=== PATIENT | male | born 1980 | race Caucasian/White ===

== ENCOUNTER 2016-08-06 19:01 | Emergency (ER) | payer OTHER ==
[~2016-08-06] VITALS: Ht 180.3 cm; Wt 73.6 kg
[~2016-08-06 19:01] MED LIST: AMOX500C3 PO; IBUP-103 PO; NAPR-1168 PO
[2016-08-06 19:03] VITALS: TEMP 36.6; Ht 180.3 cm; Wt 73.6 kg
[2016-08-06] MEDS ORDERED: ONDANSETRON 4MG OD TAB PO STA (19:41)
[2016-08-06] MEDS ORDERED: CYCLOBENZAPRINE HCL 10 MG TAB PO STA (19:41)
[2016-08-06] MEDS ORDERED: HYDROmorphone INJ 1 MG/ML SYR IM STA (19:41)
[2016-08-06] MEDS ORDERED: KETOROLAC TROMETHAMINE 60 MG/2 ML VIAL IM STA (19:41)
[2016-08-06] MEDS ORDERED: OXYCODONE IR HOME PACK PO ONE (19:45)
[2016-08-06] MEDS ORDERED: OXYC1TAB3 PO (20:00)
[2016-08-06] MEDS ORDERED: PRED20TA PO (20:00)
[2016-08-06] MEDS ORDERED: CYCL10TA6 PO (20:00)
--- NOTE | 2016-08-06 20:01 | EMERGENCY ROOM VISIT NOTE ---
ED Visit Note First contact with patient: 19:07 CHIEF COMPLAINT: Low back pain radiating into left buttock 3 weeks HISTORY OF PRESENT ILLNESS: Patient is a 36-year-old white male who presents emergency Department accompanied by his for evaluation of low-back pain that has been ongoing for about 3 weeks. He reports a history of back "going out" a few times in the past, last was about 3 years ago. Patient states that he developed pain in his left low back that radiated to his left buttocks about 3 weeks ago. They have tried icy hot, worse with movement, ice, heat and he has been going to the chiropractor for 3 weeks, but the patient reports that he is getting worse not better. He has tried a few doses of ibuprofen intermittently, but none regularly, and no other medications for discomfort. He describes the pain as a deep, aching pain that he presently rates a 7-8/10. He denies any radiation of the pain into the hip or groin. No numbness, tingling or weakness into the lower extremity. No bowel or bladder incontinence or saddle anesthesias. He has never had any other evaluation for his back other than vehicle care specialist and prior emergency department visits. He denies any direct trauma to the back, falls or unusual activity that could have injured his back prior to the onset of his pain. REVIEW OF SYSTEMS: Review of systems as per HPI. All other systems reviewed were negative. 10 systems reviewed. PMH: Electronic medical records are reviewed and summarized as above/below. See Problem List. SOCIAL HISTORY: Patient lives at home with his family. Smoker. PHYSICAL EXAM: Vital Signs: Reviewed Nurse's notes. MENTAL STATUS: Patient is an uncomfortable 36-year-old white male who is awake and alert and in mild distress due to his back pain. He has difficulty moving around on the gurney and with position changes. CARDIOVASCULAR: Regular rate and rhythm, with normal S1 and S2, no murmur or gallop or rub is heard. No carotid bruits auscultated. No JVD. Peripheral pulses easily palpable. RESPIRATORY: Breath sounds equal and clear to auscultation without wheezes, rales, or rhonchi heard. Full and equal chest expansion without accessory muscle use or retractions. ABDOMEN: Bowel sounds are present. Abdomen is soft, nontender and nondistended. INTEGUMENTARY: No lesions or rash, normal skin turgor. LYMPH: No lymphadenopathy. SPINE: Examination of the patient's back does not demonstrate any ecchymosis, abrasions or outward signs of trauma. No erythema, increased warmth or induration. Patient's pelvis is rotated, he has marked left-sided paraspinous muscle spasm in the lumbar region. Patient has midline discomfort to palpation over the low lumbar spine. There is no pain over the SI joint or the sciatic notch. He has increased pain with range of motion including rotation and flexion. EXTREMITIES: Leg lengths are asymmetrical. Negative logroll bilaterally. Normal strength including dorsi-flexion and plantar flexion of the great toes and ankles and flexion and extension of the knees. Positive bilateral straight leg raise testing. Lower extremity DTRs are equal and symmetrical bilaterally. Distal pulses are easily palpable. Sensation light touch is intact over the lower extremities bilaterally. EMERGENCY DEPARTMENT COURSE: Patient was seen and assessed as above. Old radiographs from about 3 years ago were reviewed. He was medicated with Toradol and Dilaudid IM with Zofran ODT and Flexeril by mouth. He does not provide any history consistent with trauma and it was not felt that new plain radiographs would be of any benefit. The patient admittedly has not been using any medications at home. I discussed with him at minimum taking an anti- inflammatory medicine such as Aleve or ibuprofen regularly. He is agreeable to other interventions, and a course of prednisone was discussed with him and he was in agreement. He was also prescribed Flexeril to use as a muscle relaxer and oxycodone to use for pain. He was strongly encouraged to follow-up with his primary care provider as he would likely benefit from physical therapy evaluation at this time. It was felt that he should hold on the vehicle care specialist until he is further assessed. The patient was discharged home with his driving. He rated his pain a 3/10 at discharge. MEDICAL DECISION MAKING: I do not suspect acute compression syndrome, cauda equina, diskitis, epidural abscess, hematoma or neurovascular compromise. Problem List Medical Problems: (1) Back strain Status: Resolved (2) Back strain Status: Resolved (3) Benign hypertension Status: Chronic (4) Dental caries Status: Resolved (5) Periapical abscess Status: Resolved (6) TOBACCO USE DISORDER Status: Chronic Current/Historical Medications Scheduled Prednisone (Prednisone), 0 PO DAILY Scheduled PRN Cyclobenzaprine Hcl (Flexeril), 10 MG PO TID PRN for Muscle Spasms Oxycodone Immediate Rel Tab (Roxicodone Ir), 1-2 TAB PO Q4H PRN for Severe Pain Allergies Coded Allergies: No Known Allergies (Unverified , 04/26/15) Vital Signs Date Time Temp Pulse Resp B/P Pulse Ox O2 Delivery O2 Flow Rate FiO2 08/06/16 20:28 73 16 145/64 95 Room Air 08/06/16 19:03 36.6 91 20 142/84 99 Room Air Medications Administered Medications (Trade) Dose Ordered Sig/Michael Route Start Time Stop Time Status Last Admin Dose Admin Ketorolac Tromethamine (Toradol Inj) 60 mg NOW STAT IM 08/06/16 19:41 08/06/16 19:44 DC 08/06/16 20:01 60 MG Hydromorphone HCl (Dilaudid Inj) 1 mg NOW STAT IM 08/06/16 19:41 08/06/16 19:44 DC 08/06/16 20:01 1 MG Ondansetron HCl (Zofran Odt) 4 mg NOW STAT PO 08/06/16 19:41 08/06/16 19:44 DC 08/06/16 20:01 4 MG Cyclobenzaprine HCl (Flexeril Tab) 10 mg NOW STAT PO 08/06/16 19:41 08/06/16 19:44 DC 08/06/16 20:00 10 MG Oxycodone HCl (Roxicodone Immediate Rel 5MG Home Pack) 1 homepack UD ONCE PO 08/06/16 19:45 08/06/16 19:46 DC 08/06/16 19:45 1 HOMEPACK Departure Information Impression Primary Impression: Low back pain Prescriptions Prednisone (Prednisone) 20 Mg Tab 0 PO DAILY, #18 TAB 3 DAILY FOR 3 DAYS, THEN 2 DAILY FOR 3 DAYS, THEN 1 DAILY FOR 3 DAYS. Prov: Karla Andrade PA 08/06/16 Oxycodone Immediate Rel Tab (ROXICODONE IR) 5 Mg Tab 1-2 TAB PO Q4H Y for Severe Pain, #20 TAB For Initial Treatment Prov: Karla Andrade PA 08/06/16 Cyclobenzaprine Hcl (FLEXERIL) 10 Mg Tab 10 MG PO TID Y for Muscle Spasms, #21 TAB Prov: Karla Andrade PA 08/06/16 Referrals Matteo Barrios M.D. (PCP) Patient Instructions [facility] Additional Instructions DO NOT drive, drink alcohol, operate machinery, or perform dangerous activities today. You were given medications in the ER that can affect your ability to safely function or operate a vehicle. Prednisone : Once daily as prescribed until the prescription is finished. It is best to take this earlier in the day as some patients note occasional difficulty falling asleep when taken in the late evening. Oxycodone (OxyIR) 5mg: Take 1-2 pills every four hours for breakthrough pain. Avoid alcohol, operating machinery or dangerous equipment, working on ladders or roofs, DRIVING, or situations where being under the influence may be dangerous. It is recommended to use an [id number] stool softener such as Colace, 100mg twice daily while taking this medication to avoid constipation. Cyclobenzaprine (Flexeril) 10 mg: Take 1 pills 3 times daily as needed for muscle spasms.. Avoid alcohol, operating machinery or dangerous equipment, working on ladders or roofs, DRIVING, or situations where being under the influence may be dangerous. Ibuprofen(Motrin, Advil) may be used for fever or pain. Use 600mg every six hours as needed. Take with food. Avoid using more than 2400mg in a 24 hour period. Do not use 2400mg per day for more than three consecutive days without physician direction. Prolonged inappropriate use can lead to stomach upset or ulcers. This medication can be taken if you need to drive, work, or perform activities which may be dangerous when taking narcotic pain medication. (AND/OR) Acetaminophen(Tylenol) may be used for fever or pain. Use 1000mg every six hours as needed. Avoid using more than 3000mg in a 24 hour period. This medication can be taken if you need to drive, work, or perform activities which may be dangerous when taking narcotic pain medication. Do not use ibuprofen until you have completed the course of prednisone. Rest and avoid heavy lifting until your symptoms resolve and then gradually return to full activity. A good rule of thumb is if it hurts your back to perform a certain activity, then it should be avoided until you are healthy again. A heating pad, warm compresses, or a hot shower may help with tight muscles and can be done several times a day as needed. Continue current medications. Return to the ER immediately for any numbness, tingling, severe pain, loss of control of your bowels or bladder, inability to walk, or as needed. Follow up with your primary care physician within 3-5 days for a recheck of your current condition.
[2016-08-06 20:28] VITALS: BP 145/64; PULSE 73; O2SAT 95
== END 2016-08-06 20:30 | disposition home or self-care (01) ==
LOC: C.EDB 19:02 → C.EDD 20:30
DX: M54.5 Low back pain (principal); I10 Essential (primary) hypertension; F17.200 Nicotine dependence, unspecified, uncomplicated; Z86.19 Personal history of other infectious and parasitic diseases

== ENCOUNTER 2016-11-30 10:41 | Emergency (ER) | payer SELFPAY ==
[~2016-11-30] VITALS: Ht 177.8 cm; Wt 72.0 kg
[~2016-11-30 10:41] MED LIST changes: -AMOX500C3 PO; -IBUP-103 PO; -NAPR-1168 PO; +OXYC1TAB3 PO; +PRED20TA PO
[2016-11-30 10:46] VITALS: Ht 177.8 cm; Wt 72.0 kg
[2016-11-30] MEDS ORDERED: KETOROLAC TROMETHAMINE 60 MG/2 ML VIAL IM STA (10:59)
--- NOTE | 2016-11-30 11:57 | DIAGNOSTIC IMAGING REPORT ---
L-SPINE MIN 4 VIEWS ROUTINE HISTORY: Pain LBP eval for fx COMPARISON: 08/01/2013 FINDINGS: There is no fracture. No subluxation. Moderate scoliosis possibly positional IMPRESSION: No acute process. Lumbar scoliosis. The above report was generated using voice recognition software. It may contain grammatical, syntax or spelling errors. Electronically signed by: Osman Cook M.D. 11/30/2016 11:55 AM Dictated Date/Time: 11/30/2016 11:54 AM
[2016-11-30] MEDS ORDERED: PRED20TA PO (12:18)
[2016-11-30] MEDS ORDERED: OXYC1TAB3 PO (12:18)
[2016-11-30 12:31] VITALS: BP 135/87; PULSE 57; TEMP 36.5; O2SAT 100
--- NOTE | 2016-11-30 16:44 | EMERGENCY ROOM VISIT NOTE ---
History Report prepared by Kermit: Ellie Rosa Under the Supervision of: Dr. Christian Aleman M.D. First contact with patient: 10:52 Chief Complaint: HIP PAIN Stated Complaint: HIP/BACK PAIN History of Present Illness The patient is a 36 year old male who presents to the Emergency Room with complaints of persistent left sided back pain that began a week and a half ago. He currently rates his discomfort as a 10/10 in severity. The patient states that last week he began noticing the pain that radiates into his left hip. He states that he has had pain like this in the past, noting that it occasionally flares up. The patient states that he has had difficulty walking due to the pain. He reports that he did trip and fall the other day due to the pain. The patient describes the pain as a sharp, throbbing pain. He additionally reports left leg numbness. The patient's states that the patient has taken Ibuprofen, Tylenol, and Naproxen without relief of his symptoms. The patient states that he did do physical therapy several years ago for his pain, but denies any recent physical therapy. He denies any fever, abdominal pain, or loss of control of his bowel or bladder. Source of History: patient, spouse/significant other () Onset: a week and a half ago Position: back (left sided) Symptom Intensity: 10/10 Quality: sharp, other (throbbing) Timing: other (persistent) Associated Symptoms: + numbness (Intermittent left leg), No fevers, No abdominal pain Review of Systems See HPI for pertinent positives & negatives. A total of 10 systems reviewed and were otherwise negative. Past Medical & Surgical Medical Problems: (1) Back strain (2) Back strain (3) Benign hypertension (4) Dental caries (5) Periapical abscess (6) TOBACCO USE DISORDER Family History Cancer Diabetes mellitus Heart disease Hypertension Lung disease Social History Smoking Status: Current Every Day Smoker Alcohol Use: none Marital Status: single Housing Status: lives with family, lives with significant other Occupation Status: employed Current/Historical Medications Scheduled Prednisone (Prednisone), 0 PO DAILY Scheduled PRN Oxycodone Ir (Roxicodone Ir), 5 MG PO Q4H PRN for Pain Allergies Coded Allergies: No Known Allergies (Unverified , 11/30/16) Physical Exam Vital Signs Date Time Temp Pulse Resp B/P (MAP) Pulse Ox O2 Delivery O2 Flow Rate FiO2 11/30/16 12:31 36.5 57 18 135/87 100 11/30/16 10:46 36.5 73 18 128/90 98 Physical Exam Constitutional: Vital signs reviewed. Eyes: Pupils are equal round reactive to light. Conjunctiva are noninjected. ENT: Pharynx is clear without erythema or exudate. Mucous membranes are moist. Neck supple without meningeal signs. Respiratory: Clear to auscultation bilaterally. Breath sounds are equal bilaterally. Cardiovascular: Regular rate and rhythm. No rubs or gallops. GI: Soft, nondistended and nontender. Bowel sounds are present. Musculoskeletal: No midline tenderness to the thoracic or lumbosacral spine. No peripheral edema. No lower extremity tenderness. Integumentary: No cyanosis. Neurological: The patient is awake and alert. No focal deficits. Normal motor and sensation in the lower extremities. Psychiatric: Normal affect. Medical Decision & Procedures ER Provider Diagnostic Interpretation: X-ray results as stated below per interpretation by me and the radiologist: L-SPINE MIN 4 VIEWS ROUTINE HISTORY: Pain LBP eval for fx COMPARISON: 08/01/2013 FINDINGS: There is no fracture. No subluxation. Moderate scoliosis possibly positional IMPRESSION: No acute process. Lumbar scoliosis. The above report was generated using voice recognition software. It may contain grammatical, syntax or spelling errors. Electronically signed by: Osman Cook M.D. 11/30/2016 11:55 AM Dictated Date/Time: 11/30/2016 11:54 AM Medications Administered Medications (Trade) Dose Ordered Sig/Michael Route Start Time Stop Time Status Last Admin Dose Admin Ketorolac Tromethamine (Toradol Inj) 30 mg NOW STAT IM 11/30/16 10:59 11/30/16 11:01 DC 11/30/16 11:20 30 MG ED Course 1054: The patient was evaluated in room C5. A complete history and physical exam was performed. 1059: Ordered Toradol Inj 30 mg IM. 1213: I reevaluated the patient and he is feeling a little better. I discussed his test results with him and I discussed the treatment plan. He requested Prednisone, noting that it worked well for him last time. He verbalized complete understanding and agreement. He is ready to go home. Medical Decision This is a 36-year-old male who presents with low back pain. Differential diagnosis includes strain, lumbar disc disease, radiculopathy, spinal stenosis, compression fracture. I did perform a limited focused review of portions of the patient's old chart on the electronic medical record. The patient was seen here August 06 for low back pain radiating into the left buttock. He was treated with oxycodone, Flexeril, and steroids. Blood Pressure Screening: Patient was found to have an elevated blood pressure and was referred to their primary doctor for recheck and further treatment. Medication Reconciliation: I attest that I have personally reviewed the patient' s current medication list. I did evaluate the patient as noted above. The patient is presenting with low back pain radiating into his left leg. He is neurologically intact and shows no signs of cauda equina syndrome or spinal cord injury. He has had similar back pain in the past and states that the last time he was here he did well with steroids and oxycodone. I did order and personally review the patient's x- rays as he has scoliosis but no acute findings as described above. I did treat the patient with Toradol IM. I did discuss the test results with the patient. He was advised to talk to his doctor about physical therapy and further management. He was discharged with a prescription for prednisone and OxyIR. He was given precautions regarding these medications. [place] Drug Monitoring Program Search Results: patient reviewed within database, no issues identified Impression Primary Impression: Acute low back pain Additional Impressions: Injury of sciatic nerve at hip and thigh level, left leg, initial encounter Scoliosis Scribe Attestation The scribe's documentation has been prepared under my direct and personally reviewed by me in its entirety. I confirm that the note above accurately reflects all work, treatment, procedures, and medical decision making performed by me. Departure Information Dispostion Home / Self-Care Prescriptions Prednisone (Prednisone) 20 Mg Tab 0 PO DAILY, #14 TAB 3 TABS DAILY FOR 2 DAYS, THEN 2 TABS DAILY FOR 2 DAYS, THEN 1 TAB DAILY FOR 2 DAYS, THEN 1/2 TAB DAILY FOR 2 DAYS. Prov: Christian Aleman M.D. 11/30/16 Oxycodone Ir (Roxicodone Ir) 5 Mg Tab 5 MG PO Q4H Y for Pain, #20 TAB Prov: Christian Aleman M.D. 11/30/16 Referrals Matteo Barrios M.D. (PCP) Forms HOME CARE DOCUMENTATION FORM, IMPORTANT VISIT INFORMATION, WORK / SCHOOL INSTRUCTIONS Patient Instructions Back Pain - [facility], My [facility] Additional Instructions You have been examined and treated today on an emergency basis only. This is not a substitute for, or an effort to provide, complete comprehensive medical care. It is impossible to recognize and treat all injuries or illnesses in a single emergency department visit. It is therefore important that you follow up closely with your physician. Call as soon as possible for an appointment. Return for worsening symptoms or if you develop fever, vomiting, abdominal pain , loss of control of your bowel or bladder, numbness or weakness to your legs, numbness to your private area, difficulty urinating, or any other concerning symptoms. Problem Qualifiers Primary Impression: Acute low back pain Back pain laterality: left Sciatica presence: with sciatica Sciatica laterality: sciatica of left side Qualified Codes: M54.42 - Lumbago with sciatica, left side Additional Impressions: Scoliosis Scoliosis type: unspecified scoliosis Spinal region: lumbar Qualified Codes : M41.9 - Scoliosis, unspecified
== END 2016-11-30 12:33 | disposition home or self-care (01) ==
LOC: C.EDB 10:41 → C.EDC 12:33
DX: M54.42 Lumbago with sciatica, left side (principal); S74.02XA Injury of sciatic nerve at hip and thigh level, left leg, initial encounter; W18.39XA Other fall on same level, initial encounter; M41.9 Scoliosis, unspecified; I10 Essential (primary) hypertension; F17.200 Nicotine dependence, unspecified, uncomplicated; Z83.3 Family history of diabetes mellitus; Z82.49 Family history of ischemic heart disease and other diseases of the circulatory system

== ENCOUNTER 2017-05-30 00:33 | Emergency (ER) | payer OTHER ==
[~2017-05-30] VITALS: Ht 180.3 cm; Wt 74.3 kg
[~2017-05-30 00:33] MED LIST changes: +PRED10TA PO
[2017-05-30 00:36] VITALS: TEMP 36.4; Ht 180.3 cm; Wt 74.3 kg
[2017-05-30] MEDS ORDERED: KETOROLAC TROMETHAMINE 60 MG/2 ML VIAL IM STA (01:37)
[2017-05-30] MEDS ORDERED: LIDODERM (LIDOCAINE) PATCH 5% TD STA (01:37)
[2017-05-30] MEDS ORDERED: OXYCODONE/ACETAMINOPHEN 5-325 TAB PO STA (01:37)
[2017-05-30] MEDS ORDERED: FAMOTIDINE 20 MG TAB PO ONE (01:45)
[2017-05-30] MEDS ORDERED: FLX10 PO (01:48)
[2017-05-30] MEDS ORDERED: HYDR-4313 PO (01:49)
[2017-05-30] MEDS ORDERED: GABAPENTIN 100 MG CAP PO STA (04:17)
--- NOTE | 2017-05-30 04:39 | EMERGENCY ROOM VISIT NOTE ---
History Report prepared by Kermit: Karolina Lazar Under the Supervision of: Dr. Allyssa Markham D.O. First contact with patient: 01:21 Chief Complaint: BACK PAIN Stated Complaint: BACK AND LEG PAIN History of Present Illness The patient is a 37 year old male who presents to the Emergency Room with complaints of worsening back pain for the past month. The patient injured his back last November. He has had worsening pain since then. The pain has been significantly worse over the past month. The patient has been taking Aleve, Flexeril, prednisone, and Vicodin to no significant relief. He took 2 5/325 Vicodin around 6 hours ago. The pain is in his left lower back. He reports difficulty walking and numbness in his left leg. He has been unable to sleep due to the pain. He denies any previous back injury or surgery. He denies any leg pain, numbness or tingling in the groin, incontinence, or fever. Source of History: patient, spouse/significant other Onset: 1 month ago Position: back (lower) Quality: other (pain) Timing: worsening Associated Symptoms: + numbness (left leg), No fevers Note: Pt denies groin numbness or tingling, leg pain, incontinence. Review of Systems See HPI for pertinent positives & negatives. A total of 10 systems reviewed and were otherwise negative. Past Medical & Surgical Medical Problems: (1) Back strain (2) Back strain (3) Benign hypertension (4) Dental caries (5) Periapical abscess (6) TOBACCO USE DISORDER Family History Cancer Diabetes mellitus Heart disease Hypertension Lung disease Social History Smoking Status: Current Every Day Smoker Alcohol Use: none Marital Status: single Housing Status: lives with family, lives with significant other Occupation Status: employed Current/Historical Medications Scheduled Gabapentin (Neurontin), 100 MG PO Q8 Prednisone Tab (Prednisone), 30 MG PO Q12 Scheduled PRN Acetaminophen/Hydrocodone (Hydrocodone/Acetaminophen 5-325 mg), 1 TAB PO q4-6 hrs PRN for Pain Cyclobenzaprine HCl (Cyclobenzaprine HCl), 10 MG PO BID PRN for Muscle Spasms Oxycodone/Acetaminophen 5MG/325MG (Percocet 5MG/325MG), 1-2 TABS PO Q4H PRN for Pain Allergies Coded Allergies: No Known Allergies (Unverified , 05/30/17) Physical Exam Vital Signs Date Time Temp Pulse Resp B/P (MAP) Pulse Ox O2 Delivery O2 Flow Rate FiO2 05/30/17 04:48 91 20 134/68 99 05/30/17 02:27 105 18 126/58 98 Room Air 05/30/17 00:36 36.4 108 18 120/77 97 Room Air Physical Exam GENERAL: alert, tearful, well nourished, no distress, non-toxic EYE EXAM: normal conjunctiva, PERRL and EOM's grossly intact OROPHARYNX: no exudate, no erythema, lips, buccal mucosa, and tongue normal and mucous membranes are moist NECK: supple, no nuchal rigidity, no adenopathy, non-tender LUNGS: Clear to auscultation. Normal chest wall mechanics HEART: no murmurs, S1 normal and S2 normal ABDOMEN: abdomen soft, non-tender, normo-active bowel sounds, no masses, no rebound or guarding. BACK: Back is symmetrical on inspection and there is no deformity, tender to palpation of lumbar area and left paraspinal area. No pain over the PSIS. No pain with palpation of the pelvis or hips. SKIN: no rashes and no bruising UPPER EXTREMITIES: upper extremities are grossly normal. LOWER EXTREMITIES: No pitting edema. Patellar tendon reflexes 2/4 bilaterally. Sensation seems intact. NEURO EXAM: Normal sensorium, cranial nerves II-XII grossly intact, normal speech, no gross weakness of arms, no gross weakness of legs. Medical Decision & Procedures ER Provider Diagnostic Interpretation: Radiology results have been interpreted by the [facility] radiologist and reviewed by me. MRI L spine: At L4-5, large left paracentral disc protrusion (anterior to posterior dimension of 11 mm) extending into the lateral recess. This impinges on/results in mass effect on the transiting nerve roots. No significant neural foraminal narrowing. Medications Administered Medications (Trade) Dose Ordered Sig/Michael Route Start Time Stop Time Status Last Admin Dose Admin Ketorolac Tromethamine (Toradol Inj) 60 mg NOW STAT IM 05/30/17 01:37 05/30/17 01:40 DC 05/30/17 01:45 60 MG Famotidine (Pepcid Tab) 20 mg NOW ONCE PO 05/30/17 01:45 05/30/17 01:46 DC 05/30/17 01:45 20 MG Lidocaine (Lidoderm Patch 5%) 1 patch NOW STAT TD 05/30/17 01:37 05/30/17 01:40 DC 05/30/17 01:45 1 PATCH Oxycodone/ Acetaminophen (Percocet 5-325mg Tab) 2 tab NOW STAT PO 05/30/17 01:37 05/30/17 01:40 DC 05/30/17 01:44 2 TAB Gabapentin (Neurontin Cap) 100 mg NOW STAT PO 05/30/17 04:17 05/30/17 04:18 DC 05/30/17 04:31 100 MG ED Course 0121: The patient was evaluated in room B9. A complete history and physical exam was performed. 0137: Percocet 5-325 mg Tab 2 tab PO, Lidocaine 1 patch TD, Toradol Inj 60 mg IM. 0145: Famotidine 20 mg PO. 0417: Gabapentin 100 mg PO. 0419: Upon reevaluation, the patient is feeling better. I discussed the findings and the treatment plan with the patient. He verbalizes agreement and understanding. He was discharged home. Medical Decision Differential diagnosis: Etiologies such as musculoskeletal, disc herniation, fracture, aortic disease, metastatic disease, cord compression, discitis, infection, renal colic, gastrointestinal, acute exacerbation of chronic back pain, sciatica, cauda equina, as well as others were entertained. Patient improved here despite complaints. Patient made aware of MRI results, already has an appointment with a charge master specialist this week. No symptoms to suggest acute cauda equina, patient made aware of nerve impingement likely contributing to symptoms of radiculopathy. Discussed with patient symptoms to watch and return for, use of medications, possible side effects medications, adequate hydration, rest and activity, he verbalized understanding was agreeable with plan. [place] Drug Monitoring Program Search Results: patient reviewed within database, no issues identified Medication Reconcilliation Current Medication List: was personally reviewed by me Blood Pressure Screening Patient's blood pressure: Elevated blood pressure Blood pressure disposition: Elevated BP felt to be situational Impression Primary Impression: Back pain Additional Impressions: Lumbar radiculopathy Paresthesia Scribe Attestation The scribe's documentation has been prepared under my direction and personally reviewed by me in its entirety. I confirm that the note above accurately reflects all work, treatment, procedures, and medical decision making performed by me. Departure Information Dispostion Home / Self-Care Prescriptions Gabapentin (Neurontin) 100 Mg Cap 100 MG PO Q8 for Pain, #30 CAP Prov: Rashi Allyssa S., DO 05/30/17 Oxycodone/Acetaminophen 5MG/325MG (PERCOCET 5MG/325MG) Tab 1-2 TABS PO Q4H Y for Pain, #14 TAB Prov: Allyssa Markham, DO 05/30/17 Referrals Matteo Barrios M.D. (PCP) Patient Instructions My [facility] Additional Instructions Please keep your appointment with Dr. Jaffe for Thursday. Please use the medications as prescribed. Do not take the muscle relaxer or stronger pain medication and drive. Please drink plenty of water. The stronger pain medications can cause constipation, please consider using a stool softener while taking the pain medication. If you develop worsening pain, worsening numbness or tingling, lose control of bowel or bladder function, develop fevers or chills, vomiting, or you have any other new concerns, please return the emergency room. Problem Qualifiers Primary Impression: Back pain Back pain location: low back pain Chronicity: chronic Back pain laterality : midline Sciatica presence: with sciatica Sciatica laterality: sciatica of left side Qualified Codes: M54.42 - Lumbago with sciatica, left side; G89.29 - Other chronic pain
[2017-05-30] MEDS ORDERED: OXYC-57 PO (04:40)
[2017-05-30] MEDS ORDERED: NRN/100 PO (04:40)
[2017-05-30 04:48] VITALS: BP 134/68; PULSE 91; O2SAT 99
--- NOTE | 2017-05-30 06:13 | DIAGNOSTIC IMAGING REPORT ---
LUMBAR SPINE W/O CONTRAST HISTORY: Pain. Paresthesias. LBP, LLE weakness/paresthesias TECHNIQUE: Multiplanar multisequence MRI of the lumbar spine was performed without the use of contrast. COMPARISON: None. FINDINGS: For the purpose of the report the L5-S1 disc space will be located on axial image 27 of 30. Compromised exam due to patient motion. Study nevertheless is diagnostic. L1-L2: No significant central canal or neural foraminal narrowing. L2-L3: No significant central canal or neural foraminal narrowing. L3-L4: No significant central canal or neural foraminal narrowing. L4-L5: Large left central disc herniation. Moderate narrowing left neural foramina with significant spinal stenosis primarily in the left lateral position. Disc material occupies the left lateral recess. L5-S1: No significant central canal or neural foraminal narrowing. IMPRESSION: 1. Large left central disc herniation L4-L5. 2. Soft tissue/disc material occupies the left lateral recess as well as narrows the left neural foramina . 3. Significant impact upon the anterior left central thecal sac. The above report was generated using voice recognition software. It may contain grammatical, syntax or spelling errors. Electronically signed by: Osman Cook M.D. 05/30/2017 6:11 AM Dictated Date/Time: 05/30/2017 6:08 AM
[2017-06-01] MEDS ORDERED: IBUP-1428 PO (12:20)
[2017-06-01] MEDS ORDERED: OXYC-57 PO (12:20)
[2017-06-01] MEDS ORDERED: GABA-113 PO (12:20)
[2017-06-01] MEDS ORDERED: HYDR-5688 PO (12:20)
== END 2017-05-30 04:48 | disposition home or self-care (01) ==
LOC: C.EDB 00:34
DX: M54.42 Lumbago with sciatica, left side (principal); M54.16 Radiculopathy, lumbar region; G89.29 Other chronic pain; R20.2 Paresthesia of skin; I10 Essential (primary) hypertension; F17.210 Nicotine dependence, cigarettes, uncomplicated; Z80.9 Family history of malignant neoplasm, unspecified; Z83.3 Family history of diabetes mellitus; Z82.49 Family history of ischemic heart disease and other diseases of the circulatory system; Z83.6 Family history of other diseases of the respiratory system

== ENCOUNTER → 2017-06-01 | Outpatient (CLI) | payer OTHER ==
[~2017-06-01] MED LIST changes: +FLX10 PO; +GABA-113 PO; +HYDR-4313 PO; +HYDR-5688 PO; +IBUP-1428 PO; +NRN/100 PO; +OXYC-57 PO
--- NOTE | 2017-06-01 12:36 | DIAGNOSTIC IMAGING REPORT ---
TWO VIEW CHEST CLINICAL HISTORY: Preoperative examination. FINDINGS: PA and lateral chest radiographs are obtained. No prior studies are available for comparison at the time of dictation. The PA view is significantly degraded by patient rotation. The cardiomediastinal silhouette is unremarkable. Airspace opacities are seen at the left lung base. The lungs are otherwise clear. No pleural effusion or pneumothorax is seen. The bony thorax appears intact. IMPRESSION: 1. Airspace opacities are present at the left lung base. This may represent atelectasis. Correlate clinically for evidence of developing pneumonia. Consider a repeat PA view with improved positioning for reassessment. 2. The right lung is clear. No pleural effusion is identified. Electronically signed by: Jaya Lau M.D. 06/01/2017 12:35 PM Dictated Date/Time: 06/01/2017 12:33 PM
[2017-06-01 13:09] LABS: BASO % 0.1 %; BASO ABS # 0.01 K/uL (0-0.2); EOS % 0.2 %; EOS ABS # 0.02 K/uL (0-0.5); HEMATOCRIT 44.8 % (42-52); IG# 0.03 K/uL (0.00-0.02); LYMPH % 14.1 %; MEAN CELL VOLUME 91.4 fL (80-100); MEAN CORPUSCULAR HEMOGLOBIN 30.6 pg (25-34); MEAN CORPUSCULAR HGB CONC 33.5 g/dl (32-36); MEAN PLATELET VOLUME 10.5 fL (7.4-10.4); MONO % 3.4 %; MONO ABS # 0.36 K/uL (0.11-0.59); NEUT % 81.9 %; NEUT ABS # 8.74 K/uL (1.4-6.5); PLATELET COUNT 196 K/uL (130-400); RED CELL DISTRIBUTION WIDTH CV 13.1 % (11.5-14.5); RED CELL DISTRIBUTION WIDTH SD 43.8 fL (36.4-46.3); WHITE BLOOD COUNT 10.66 K/uL (4.8-10.8)
[2017-06-01 13:29] LABS: BLOOD UREA NITROGEN 12 mg/dl (7-18); CALCIUM 9.4 mg/dl (8.5-10.1); CARBON DIOXIDE 30 mmol/L (21-32); CREATININE 1.02 mg/dl (0.60-1.40); GLUCOSE 145 mg/dl (70-99); POTASSIUM 3.7 mmol/L (3.5-5.1); SODIUM 137 mmol/L (136-145)
== END | disposition home or self-care (01) ==
LOC: C.LAB 11:57
PROVIDERS: ATTEND Orthopaedic Surgery Orthopaedic Surgery of the Spine
DX: M51.26 Other intervertebral disc displacement, lumbar region (principal)

== ENCOUNTER 2017-06-03 08:51 | Day surgery (SDC) | payer OTHER ==
[2017-06-01 12:14] VITALS: Ht 180.3 cm; Wt 72.7 kg
[~2017-06-03] VITALS: Ht 180.3 cm; Wt 72.7 kg
[~2017-06-03 08:51] MED LIST changes: +CEFAZOLIN 1000MG IV PUSH 5 ML IV SCH; -HYDR-4313 PO; +LACTATED RINGER'S 1000ML 1,000 ML IV SCH; -NRN/100 PO; -OXYC1TAB3 PO; -PRED10TA PO; -PRED20TA PO
[2017-06-03 09:40] VITALS: BP 140/101; PULSE 80; TEMP 36.5; O2SAT 98
[2017-06-03] MEDS ORDERED: ATROPINE SULFATE 0.1 MG/ML 5ML SYR IV PRN (10:00)
[2017-06-03] MEDS ORDERED: ONDANSETRON INJ 2 MG/ML 2 ML VIAL IV PRN (10:00)
[2017-06-03] MEDS ORDERED: PROMETHAZINE HCL INJ 12.5 MG in SODIUM CHLORIDE 0.9% 50ML 50 ML IV PRN (10:00)
[2017-06-03] MEDS ORDERED: EpHEDrine SULFATE INJ 50 MG/ML AMP IV PRN (10:00)
[2017-06-03] MEDS ORDERED: HYDROmorphone INJ 1 MG/ML SYR IV PRN ×2 (10:00→12:45)
--- NOTE | 2017-06-03 10:16 | DIAGNOSTIC IMAGING REPORT ---
CHEST 2 VIEWS ROUTINE CLINICAL HISTORY: Preoperative chest COMPARISON STUDY: 06/01/2017 FINDINGS: The cardiac and mediastinal contours are normal. There is no evidence of focal pulmonary consolidation. There is no evidence of failure. No pleural effusions are visualized.[ IMPRESSION: No active disease in the chest. Electronically signed by: Jordan Ho M.D. 06/03/2017 10:15 AM Dictated Date/Time: 06/03/2017 10:13 AM
[2017-06-03] MEDS ORDERED: FENTANYL CITRATE INJ 50 MCG/1 ML 2 ML VIAL ONE ×2 (10:46→11:28)
[2017-06-03] MEDS ORDERED: MIDAZOLAM HCL 1 MG/ML 2ML VIAL ONE (10:46)
--- NOTE | 2017-06-03 11:03 | History & Physical Bridge Note ---
H&P Re-Evaluation Bridge Note: I have examined the patient, reviewed the History & Physical and in the interval since the performance of the History & Physical I have noted the following changes of clinical significance: No changes noted
--- NOTE | 2017-06-03 11:04 | History and Physical ---
History & Physical Date Jun 03, 2017. Chief Complaint Back and leg pain History of Present Illness The patient is a 37 year old male with complaints of back and leg pain Past Medical/Surgical History Medical Problems: (1) Back strain (2) Back strain (3) Benign hypertension (4) Dental caries (5) Periapical abscess (6) TOBACCO USE DISORDER Additional History Hepatic Disease: No Endocrine Disorder: No Kidney Disease: No Hypertension: No Heart Disease: No Bleeding Tendencies: No Infectious Diseases: No Allergies Coded Allergies: No Known Allergies (Unverified , 06/03/17) Home Medications Scheduled Gabapentin (Neurontin), 300 MG PO Q8H Scheduled PRN Cyclobenzaprine HCl (Cyclobenzaprine HCl), 10 MG PO BID PRN for Muscle Spasms Ibuprofen (Motrin), 800 MG PO Q4-6H PRN for Pain Oxycodone/Acetaminophen 5MG/325MG (Percocet 5MG/325MG), 1-2 TABLETS PO Q4H PRN for N Physical Examination Skin: warm/dry, no rash Eyes: normal inspection, EOMI, sclerae normal ENT: normal ENT inspection, pharynx normal Head: normocephalic, atraumatic Neck: supple, no adenopathy, trachea midline Respiratory/Chest: lungs clear, normal breath sounds, no respiratory distress Cardiovascular: regular rate, rhythm, no edema, no murmur Abdomen / GI: normal bowel sounds, non tender Back: normal inspection Extremities: normal inspection, normal range of motion Neurologic/Psych: no motor/sensory deficits, alert, normal reflexes, oriented x 3 Diagnosis Herniated was pulposus L4 5 Plan of Treatment Lumbar laminectomy L4 5 on the left
[2017-06-03] MEDS ORDERED: BACITRACIN 50000 UNIT VIAL ONE (11:27)
[2017-06-03] MEDS ORDERED: HYDROmorphone INJ 2 MG/ML SYR/VIAL ONE ×2 (11:28→12:25)
[2017-06-03] MEDS ORDERED: BUPIVACAINE 0.5 % 5 MG/1 ML MPF 30ML VIAL ONE (11:28)
[2017-06-03] MEDS ORDERED: EpINEphrine INJ 1MG/ML AMP 1 MG/ML AMP ONE (11:28)
[2017-06-03] MEDS ORDERED: FLOSEAL HEMOSTATIC MATRIX 5ML TOP ONE (12:27)
[2017-06-03] MEDS ORDERED: OXYC-57 PO (12:37)
--- NOTE | 2017-06-03 12:41 | Discharge Instructions ---
Discharge Instructions Date of Service Jun 03, 2017. Admission Reason for Admission: Spinal Stenosis, Repeat Xray Discharge Discharge Diagnosis / Problem: lumbar herniated disk Discharge Goals Goal(s): Improve function Activity Recommendations Activity Limitations: per Instructions/Follow-up section . Instructions / Follow-Up Instructions / Follow-Up ACTIVITY RECOMMENDATIONS: SELF CARE INSTRUCTIONS AFTER A LAMINECTOMY 1. No prolonged sitting (less than 30 minutes for the first 3 weeks after surgery). 2. No bending, lifting more than 5 pounds, or twisting (roll like a log when turning in bed). 3. You may shower 3 days after surgery if no drainage from wound. Thoroughly dry wound. Do not soak in the tub. 4. Please walk as much as you can for exercise. Gradually increase the distance that you walk as your endurance increases. 5. You may drive in 7-10 days if you are comfortable and no longer requiring pain medications. SPECIAL CARE INSTRUCTIONS: VERY IMPORTANT TO READ AND REVIEW A. Your surgical incision has been closed with a cosmetic suture under the skin that will dissolve in about 6 weeks. In 14 days, you can use a pair of clean scissors and cut the suture that is left outside of the skin at the ends of your incision. B. Complications are uncommon, but please contact us if you have any signs or symptoms of: 1. wound infection (fever higher than 102.5 degrees F, redness, separation of wound, drainage, or increasing pain from the incision) 2. blood clots in legs (pain, swelling, redness and warmth in legs) 3. urinary tract infection (fever higher than 102.5 degrees, burning upon urination or increased frequency of urination) 4. nerve problems (inability to walk on your toes or heels, numbness, loss of bowel or bladder control) 5. any other symptoms that concern you. C. Please call the office at if you have any concerns or questions about your operation or recovery. MANAGING PAIN AFTER SPINAL SURGERY 1. Narcotic medication is intended for short-term use and will be provided for surgical pain. Surgical pain usually lasts for a period of 4-6 weeks. Narcotic medication includes Percocet, Vicodin, Darvocet, Tylenol #3 or Lortab. 2. Longer-term pain is more appropriately treated with non-narcotic medication such as Tylenol ES. 3. Muscle spasm is not appropriately treated with narcotics. Muscle relaxers such as Soma, Flexeril or Skelaxin can be used along with Tylenol ES. 4. Remember that we all live with some "aches and pains". This is not unusual or uncommon after an injury or as we get older. 5. We will provide appropriate medication within the normal guidelines of their prescribed use. We will also be very cautious and aware of potential abuse and extended duration of patients' medication needs. 6. Please allow 2-3 days to process refills. Prescriptions will not be mailed but must be picked up at the office. FOLLOW UP VISIT: Keep your scheduled follow-up appointment. Any questions, please call the office at . Current Hospital Diet Patient's current hospital diet: Discharge Diet Recommended Diet: Regular Diet Procedures Procedures Performed: Microdisectomy left L4-L5 Pending Studies Studies pending at discharge: no Medical Emergencies . Who to Call and When: Medical Emergencies: If at any time you feel your situation is an emergency, please call 911 immediately. . Non-Emergent Contact Non-Emergency issues call your: Primary Care Provider . "Provider Documentation" section prepared by López Jaffe. . VTE Core Measure Inpt VTE Proph given/why not?: David Strong, SCD's
[2017-06-03] MEDS ORDERED: KETOROLAC TROMETHAMINE 30 MG/ML VIAL ONE (12:45)
[2017-06-03] MEDS ORDERED: PROPOFOL IV EMULSION 10 MG/ML 20 ML VIAL IV ONE (12:45)
[2017-06-03] MEDS ORDERED: ACETAMINOPHEN 325 MG TAB PO PRN (12:45)
[2017-06-03] MEDS ORDERED: ROCURONIUM BROMIDE 10 MG/ML 5 ML VIAL IV ONE (12:45)
[2017-06-03] MEDS ORDERED: LIDOCAINE HCL 2% 2 ML VIAL (20MG/ML) ONE (12:45)
[2017-06-03] MEDS ORDERED: OXYCODONE/ACETAMINOPHEN 5-325 TAB PO PRN (12:45)
[2017-06-03] MEDS ORDERED: ONDANSETRON INJ 2 MG/ML 2 ML VIAL ONE ×2 (12:45→13:09)
[2017-06-03] MEDS ORDERED: GLYCOPYRROLATE INJ 0.2 MG/ML VIAL ONE (12:45)
[2017-06-03] MEDS ORDERED: LARYING-O-JET KIT (LTA) ONE (12:45)
[2017-06-03] MEDS ORDERED: NEOSTIGMINE METHYLSULFATE 1 MG/ML 10ML VIAL ONE (12:45)
[2017-06-03] MEDS ORDERED: DEXAMETHASONE SOD INJ 4 MG/ML VIAL ONE (12:45)
[2017-06-03] MEDS: FENTANYL CITRATE INJ 50 MCG/1 ML 2 ML VIAL IV PRN ×4 (12:51→13:04)
--- NOTE | 2017-06-03 13:17 | DIAGNOSTIC IMAGING REPORT ---
SPINE ONE VIEW, ANY LEVEL HISTORY: Microdiscectomy. FLUOROSCOPY TIME: 4.3 seconds. FINDINGS: Intraoperative fluoroscopy was provided for the lumbar spine. 1 fluoroscopic spot images were obtained. IMPRESSION: Fluoroscopy provided for a lumbar microdiscectomy at L4-L5.. The above report was generated using voice recognition software. It may contain grammatical, syntax or spelling errors. Electronically signed by: Osman Cook M.D. 06/03/2017 1:16 PM Dictated Date/Time: 06/03/2017 1:14 PM
--- NOTE | 2017-06-03 13:22 | Anesthesiology Progress Note ---
Anesthesia Post Op Note Date & Time Jun 03, 2017 at 13:22 Vital Signs Pain Intensity: 3 Vital Signs Past 12 Hours Date Time Temp Pulse Resp B/P (MAP) Pulse Ox O2 Delivery O2 Flow Rate FiO2 06/03/17 13:10 113/74 06/03/17 13:07 55 17 06/03/17 13:07 56 17 99 06/03/17 13:05 116/70 06/03/17 13:02 62 18 96 06/03/17 13:02 63 18 06/03/17 13:01 78 9 98 06/03/17 13:01 70 9 06/03/17 13:00 116/72 06/03/17 12:56 56 14 99 06/03/17 12:56 57 14 06/03/17 12:55 112/67 06/03/17 12:51 56 11 99 06/03/17 12:51 56 11 06/03/17 12:50 110/70 06/03/17 12:46 57 11 06/03/17 12:46 59 11 99 06/03/17 12:45 109/67 06/03/17 12:42 113/70 06/03/17 12:41 36.4 54 14 113/70 98 Oxymask 10 06/03/17 12:41 62 13 06/03/17 12:41 64 13 98 06/03/17 09:40 36.5 80 18 140/101 (114) 98 Room Air Notes Mental Status: alert / awake / arousable, participated in evaluation Pt Amnestic to Procedure: Yes Nausea / Vomiting: adequately controlled Pain: adequately controlled Airway Patency, RR, SpO2: stable & adequate BP & HR: stable & adequate Hydration State: stable & adequate Anesthetic Complications: no major complications apparent
--- NOTE | 2017-06-03 13:42 | [facility] Operative Report ---
Operative Report Operative Date Jun 03, 2017. Pre-Operative Diagnosis Herniated Nucleated Pulpus L4 5 Post-Operative Diagnosis Herniated Nucleated Pulpus L4 5 Procedure(s) Performed Microdisectomy left L4-L5 Surgeon Dr. Yan Jaffe Pharmacy Sales Representative Surgeon(s) Prateek Elias PA-C Findings Herniated free fragments L4 5. Specimens A: Left L4-L5 Disc Description of Procedure Patient was met with preoperatively case discussed all questions addressed. After informed consent obtained patient was taken to the operative suite underwent intubation and placed in the prone position on the Fernando table on top [place] frame. All bony prominences well-padded I suspected to return no external pressure placed upon it. This point the lumbar spine was prepped and draped in sterile fashion. Fluoroscopy identified the L4 5 disc space. A small midline incision was created and exposed the interlaminar space on the left. This suffered in retractors placed. A small laminotomy was created and excised the lateral portion of the ligamentum flavum. I exposed markedly compressed traversing L5 nerve root. He was mobilized medially and several massive fragments of free disc material material identified and removed. The area was scored several times intraoral frames were addressed. Then copious irrigated. And closed with 1 Vicryl in the fascia 2-0 Vicryl subcutaneous tissue and 4-0 Monocryl for final skin closure. Steri-Strips dressings placed. Patient awakened taken PACU stable condition. Please note and was present for the entire procedure involved in patient positioning complex portions of the surgery and final skin closure. I attest to the content of the Intraoperative Record and any orders documented therein. Any exceptions are noted below.
[2017-06-03 14:30] VITALS: BP 124/83; PULSE 79; TEMP 36.4; O2SAT 97
== END 2017-06-03 14:30 | disposition home or self-care (01) ==
LOC: C.ACU 08:51
PROVIDERS: ATTEND Orthopaedic Surgery Orthopaedic Surgery of the Spine
DX: M51.26 Other intervertebral disc displacement, lumbar region (principal); I10 Essential (primary) hypertension; M19.90 Unspecified osteoarthritis, unspecified site; F17.210 Nicotine dependence, cigarettes, uncomplicated; Z79.899 Other long term (current) drug therapy

== ENCOUNTER 2019-03-21 11:04 | Inpatient (IN) ==
--- NOTE | 2019-03-09 09:28 | Anesthesiology Consultation ---
Date of Service March 09, 2019 Assessment & Plan (1) Encounter for pre-operative examination: PCP: 02/07/19: lower abdominal 1 x 1.25cm lesion suspicious for MRSA (treated with bactrim/bactroban). T/C referral to derm for biopsy if no improvement. Subsequently evaluated at PAT visit 03/09/19- 2.5 x 2.5 mm area of mild darkened skin (no erythema, crusting, tenderness, scaling). Surgeon made aware. Chart Review Chart Review: Pending: Refer to Additional Notes / Consult section (pending preop testing (labs)) and Patient seen in Pre Admission Testing Teaching & Discussion Pre-Anesthesia Teaching/Discussion Notes: Instructed NPO after midnight before surgery,except medications with 15 cc of water. Medication instructions provided according to the [facility] guidelines. History Surgery Operation Date: 03/21/19 07:45 Proposed Procedures p L4-L5 Transforaminal Lumbar Interbody Fusion, Spinal Cord Monitoring - López Jaffe, Height/Weight Height: 5 ft 10 in Weight: 77.4 kg Allergies Allergy/AdvReac Type Severity Reaction Status Date / Time No Known Allergies Allergy Mild Unverified 03/02/19 08:34 Medications Home Medications Medication Instructions Recorded Confirmed Last Taken Tylenol 1 tab PO DAILY PRN 03/09/19 03/09/19 Unknown Past Medical History Medical History Scoliosis per records Chronic back pain Exercise / Class Metabolic Activity II 4-5 Yardwork/Stairs/Walk up hill Past Family History Family History Grandmother Family history of diabetes mellitus Past Surgical History Surgical History History of discectomy L4-L5 MICRODISCECTOMY= 06/03/17= GRADE VIEW 1, MAC 3, ETT 8.0 AT [facility] History of open reduction and internal fixation (ORIF) procedure RUE + REVISION (2008) History of tooth extraction Past Anesthesia History No Hx of Anesthesia Complications and No Family Hx of Anesthesia Complications History of PONV No Hx of PONV and No Hx of Motion Sickness Social History Smoking Status: Current every day smoker tobacco type: cigarettes Smoking cigarettes per day: 1 PPD x 20+ years Do You Dip or Chew Tobacco: No Hx Alcohol Use: Yes Alcohol type: hard liquor alcohol intake frequency: holidays/special occasions only Hx Substance Use: Yes substance use type: marijuana Substance Use Type Other:: infrequent marijuana- inhalation (last use ~01/2019) Review of Systems Patient denies chest pain, shortness of breath, dyspnea on exertion, reflux, cough, wheezing, palpitations. Physical Exam Vital Signs VITALS BP 115/78 P 75 TEMP 98.1 SP02 98%RA RESP 16 PHYSICAL Full neck and c-spine range of motion. Full TMJ range of motion. TMD 4 finger breaths Mallampati Score 2 Dentition: several missing teeth on upper, no teeth on lower Lungs: clear throughout to auscultation Cardiac: regular rate and rhythm, no murmurs noted Spine: normal Carotid arteries: negative bruit Extremities: no edema Abdomen: 2.5x2.5 mm area of mild darkened skin (no erythema, crusting, tenderness, scaling) Trimmed jackson Testing Electrocardiogram Date: 06/17/18 Findings: + SB @ (57) Chest X-Ray Date: 06/17/18 Findings: + NAD
[2019-03-09 10:37] LABS: Basophils # (auto) 0.05 K/uL (0-0.2); Basophils % (auto) 0.8 %; Eosinophils # (auto) 0.11 K/uL (0-0.5); Eosinophils % (auto) 1.7 %; Hematocrit (blood only) 47.2 % (42-52); Hemoglobin 16.1 g/dL (14.0-18.0); Immature Granulocytes # (auto) 0.01 K/uL (0.00-0.02); Immature Granulocytes % (auto) 0.2 %; Lymphocytes % (auto) 29.9 %; Mean Corpuscular Hgb Conc 34.1 g/dL (32-36); Mean Corpuscular Volume 90.9 fL (80-100); Mean Platelet Volume 10.7 fL (7.4-10.4); Monocytes # (auto) 0.38 K/uL (0.11-0.59); Neutrophils # (auto) 3.91 K/uL (1.4-6.5); Neutrophils % (auto) 61.4 %; Platelet Count 179 K/uL (130-400); RDW Coefficient of Variation 13.3 % (11.5-14.5); RDW Standard Deviation 43.8 fL (36.4-46.3); Red Blood Count 5.19 M/uL (4.7-6.1); White Blood Count 6.36 K/uL (4.8-10.8)
[2019-03-09 10:44] LABS: Calcium 9.4 mg/dl (8.5-10.1); Creatinine Clr Calc Pharmacy 103.4 ml/min; Est GFR (African American) 109.6; Est GFR (Non-African American) 94.6; Potassium 4.5 mmol/L (3.5-5.1)
[2019-03-09 10:50] LABS: Partial Thromboplastin Time 26.5 Seconds (21.0-31.0); Prothrombin Time 10.1 Seconds (9.0-12.0)
[2019-03-09 13:27] LABS: Appearance Urine Clear (Clear); Bilirubin Urine Negative (Negative); Blood Urine Negative (Negative); Color Urine Yellow; Glucose Urine UA Negative (Negative); Ketones Urine Negative (Negative); Leukocyte Esterase Urine Negative (Negative); Nitrite Urine Negative (Negative); Protein Urine Negative (Negative); Specific Gravity Urine 1.021 (1.000-1.030); Urobilinogen Urine Negative (Negative); pH Urine 7.5 (4.5-7.5)
[~2019-03-21 11:04] MED LIST changes: +ACETAMINOPHEN 500 MG TAB PO SCH; +CEFAZOLIN 1000MG 1,000 MG/7.5 ML SYR IV SCH; -CEFAZOLIN 1000MG IV PUSH 5 ML IV SCH; +CeleBREX 200 MG CAP PO SCH; -FLX10 PO; -GABA-113 PO; +GABAPENTIN 900 MG DOSE PO SCH; -HYDR-5688 PO; +HYDROmorphone INJ 2 MG/ML SYR/VIAL ONE; -IBUP-1428 PO; -LACTATED RINGER'S 1000ML 1,000 ML IV SCH; +LR 15ML/HR IV SCH; +MIDAZOLAM HCL 1 MG/ML 2ML VIAL ONE; -OXYC-57 PO; +fentaNYL citrate 100 MCG/2 ML VIAL ONE
[2019-03-21] MEDS ORDERED: KETAMINE HCL INJ 50 MG/ML 10 ML VIAL ONE (11:05)
[2019-03-21] MEDS ORDERED: ROCURONIUM BROMIDE 10 MG/ML 5 ML VIAL ONE (11:09)
[2019-03-21] MEDS ORDERED: NEOSTIGMINE METHYLSULFATE 1 MG/ML 10ML VIAL ONE (11:09)
[2019-03-21] MEDS ORDERED: PROPOFOL IV EMULSION 10 MG/ML 20 ML VIAL IV ONE (11:09)
[2019-03-21] MEDS ORDERED: LIDOCAINE HCL 2% 2 ML VIAL/AMP(20MG/ML) INFIL ONE (11:09)
[2019-03-21] MEDS ORDERED: GLYCOPYRROLATE 0.2 MG/ML VIAL ONE (11:09)
[2019-03-21] MEDS ORDERED: ONDANSETRON INJ 2 MG/ML 2 ML VIAL ONE (11:09)
[2019-03-21] MEDS ORDERED: DEXAMETHASONE SOD INJ 4 MG/ML VIAL ONE (11:09)
[2019-03-21] MEDS ORDERED: ONDANSETRON INJ 2 MG/ML 2 ML VIAL IV PRN ×2 (12:26→16:24)
[2019-03-21] MEDS ORDERED: ATROPINE SULFATE 0.1 MG/ML 10ML SYR IV PRN (12:26)
[2019-03-21] MEDS ORDERED: LABETALOL HCL IV 5 MG/ML 20ML IV PRN (12:26)
--- NOTE | 2019-03-21 12:50 | History & Physical Bridge Note ---
Date of Service March 21, 2019 History & Physical Bridge Note I have examined the patient, reviewed the History & Physical and in the interval since the performance of the History & Physical I have noted the following changes of clinical significance: no changes noted
--- NOTE | 2019-03-21 12:51 | History & Physical Report ---
Date of Service March 21, 2019 Assessment & Plan (1) Spinal stenosis, lumbar region with neurogenic claudication: L4-L5 transforaminal lumbar interbody fusion Present on Admission?: Yes History of Present Illness Chief Complaint: Back and leg pain Primary Care Provider: Asia Portillo MD This is a 38-year-old male who presents with chronic persistent back and leg pain after failing extensive course of nonoperative care is here for surgery intervention. Allergies Allergy/AdvReac Type Severity Reaction Status Date / Time No Known Allergies Allergy Mild Unverified 03/02/19 08:34 Home Medications Home Medications Medication Instructions Recorded Confirmed Type Tylenol 1 tab PO DAILY PRN 03/09/19 03/21/19 History Past Med/Surg History Medical History Scoliosis per records Chronic back pain Surgical History History of discectomy L4-L5 MICRODISCECTOMY= 06/03/17= GRADE VIEW 1, MAC 3, ETT 8.0 AT [facility] History of open reduction and internal fixation (ORIF) procedure RUE + REVISION (2008) History of tooth extraction Family History Grandmother Family history of diabetes mellitus Social History Preferred Language: Macedonian Communication Ability: Effective 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 Beliefs That Will Affect Care: None Current Living Situation: Family, Significant Other and Other Current Living Situation Comment: [facility] Other Information That Helps Us Care for You: No Feels Safe at Home: Yes Smoking Status: Current every day smoker Tobacco Type: cigarettes ; Cigarettes Per Day: 1 PPD x 20+ years ; Do You Dip or Chew Tobacco: No ; Second Hand Exposure: No ; Tobacco Cessation Education Requested by Patient: No Hx Alcohol Use: Yes Alcohol type: hard liquor Hx Substance Use: Yes substance use type: marijuana Substance Use Type Other:: infrequent marijuana- inhalation (last use ~01/2019) Physical Exam Physical Exam: Patient is alert and oriented neurologically intact. Results & Data Vital Signs (Past 12 Hours) Vital Signs Temp Pulse Resp BP Pulse Ox 03/21/19 11:34 36.8 C 80 20 124/90 98
[2019-03-21] MEDS ORDERED: BUPIVACAINE 0.5 % 5 MG/1 ML MPF 30ML VIAL ONE (13:00)
[2019-03-21] MEDS ORDERED: EPINEPHrine INJ 1 MG/ML AMP ONE (13:00)
[2019-03-21] MEDS ORDERED: BACITRACIN INJ 50,000 UNIT VIAL ONE (13:01)
[2019-03-21] MEDS ORDERED: FLOSEAL HEMOSTATIC MATRIX 5ML TOP ONE (13:53)
[2019-03-21] MEDS ORDERED: PHENYLEPHRINE 100MCG/ML 5ML SYR ONE (13:57)
[2019-03-21] MEDS ORDERED: ePHEDrine sulfate 50 MG/ML SYR ONE (14:22)
--- NOTE | 2019-03-21 14:41 | Operative Report ---
Post Operative Report Pre & Post Diagnosis Operation Date: 03/21/19 12:35 Pre-Op Diagnosis: Lumbar Intervertebral Disc Disorders w/Radiculopat Post-Op Diagnosis: Lumbar Intervertebral Disc Disorders w/Radiculopat I identified the patient and participated in the time-out.: Yes Procedure Operation Date: 03/21/19 12:35 Actual Procedures #1 revision decompression with medial facetectomies foraminotomies L4-5. #2 posterior spinal fusion L4-5. #3 placement posterior instrumentation L4-5 per #4 interbody fusion L4-5. #5 placed a peek cage 12 x 26 mm at L4-5 per #6 basement of locally harvested morselized autograft in the posterior lateral gutters per #7 placement infuse collagen sponge by mass graft in the posterior lateral gutters and ostial amp and interbody space. Surgeon López Jaffe DO Lubrication Worker Shelby King Estimated Blood Loss 50 Findings Consistent with Post-Op Diagnosis Specimens None Indications This is a 38-year-old male well-known to the presents with worsening back and leg symptoms. After failing extensive course of nonoperative care is here for surgical intervention. Description of Procedure Patient was met with identified and informed consent obtained. Patient was then taken to the operative suite underwent ablation placed in a prone position the Fernando table on top of the [place] frame. All bony prominences well-padded eyes inspected to ensure no external pressure placed upon them. Lumbar spine was then prepped and draped in normal sterile fashion. Sharp dissection with the assistance of Bovie cautery was performed down to and exposing the lamina transverse processes of L4 and L5 bilaterally. And then performed a revision complete laminectomy of L4 bilateral medial facetectomies and foraminotomies to address all stenosis. Pedicle screws were then placed in L4 and L5 bilaterally with assistance of fluoroscopy the process capmbell placed. By way of a transforaminal approach on the left complete discectomy was performed as well as addressing the recurrent disc herniation. Endplates then curetted to subcortical being bone and a 12 x 26 mm peek cage filled with ostium bone graft tapped in position. The rods were then locked in final position bilaterally. Transverse processes of L4 and L5 bur to subcortical being bone. Infuse collagen sponge master graft and local autograft placed in the posterior lateral gutters. 15 round TRACI drain inserted. The incision was then closed with 1 Vicryl in the fascia 2-0 Vicryl subcutaneously 4 0 Monocryl for final skin closure. Steri-Strip sterile dressings placed. Patient will continue PACU stable condition. Please note Shelby King present throughout the entire procedure involved in patient positioning complex portions of the surgery and final skin closure. Lastly spinal cord monitoring was utilized throughout the procedure no changes noted. I attest to the content of the Intraoperative Record and any orders documented therein. Any exceptions are noted below.
--- NOTE | 2019-03-21 14:42 | Fluoroscopy Report ---
FL lumbar spine 2-3V HISTORY: 38 years-old Male L4-L5 INTERBODY FUSION chronic low back pain COMPARISON: Lumbar spine MRI 05/30/2017 TECHNIQUE: 2 spot fluoroscopic images of the lumbar spine were obtained utilizing 17.5 seconds fluoro scopy time FINDINGS: Laminectomy with posterior interbody campbell and screw fusion and discectomy at L4-L5. Satisfactory align ment. Mild multilevel spondylitic spurring. Soft tissues appear unremarkable. IMPRESSION: Fluoroscopic assistance as above. Please see operative report for further details. The above report was generated using voice recognition software. It may contain grammatical, syntax o r spelling errors. Electronically signed by: Tomás Marshall M.D. 03/21/2019 2:41 PM
[2019-03-21] MEDS: HYDROmorphone INJ 1 MG/ML SYRINGE IV PRN ×2 (15:28→15:33)
--- NOTE | 2019-03-21 15:41 | Anesthesiology Progress Note ---
Date of Service March 21, 2019 Anesthesia Post Procedure Vital Signs Vital Signs: Temp Pulse Pulse Resp BP Pulse Ox 03/21/19 15:35 83 17 121/84 96 03/21/19 15:25 96 H 16 128/78 97 03/21/19 15:15 72 17 118/71 97 03/21/19 15:05 75 16 123/70 97 03/21/19 14:55 36.7 C 76 26 H 108/73 97 03/21/19 11:34 36.8 C 80 20 124/90 98 Pain Intensity Lower Back: Pain Intensity: 5 Transfer of Care Handoff Completed per policy Notes Mental Status: alert / awake / arousable Patient Amnestic to Procedure: Yes Nausea / Vomiting: adequately controlled Pain: adequately controlled Airway Patency, RR, SpO2: stable & adequate BP & HR: stable & adequate Hydration State: stable & adequate Anesthetic Complications: no major complications apparent
[2019-03-21] MEDS ORDERED: NALOXONE HCL 0.4 MG/1 ML VIAL/CARP IV PRN (16:24)
[2019-03-21] MEDS ORDERED: PROMETHAZINE HCL 12.5 MG in SODIUM CHLORIDE 0.9% 50 ML IV PRN (16:24)
[2019-03-21] MEDS ORDERED: HYDROmorphone INJ 0.5 MG/0.5 ML SYR IV PRN (16:24)
[2019-03-21] MEDS ORDERED: SOD PHOSPHATE/SOD BIPHOSPHATE ENEMA 132 ML BTL PR PRN (16:24)
[2019-03-21] MEDS ORDERED: ACETAMINOPHEN 1,000 MG/100 ML VIAL IV PRN (16:24)
[2019-03-21] MEDS ORDERED: ONDANSETRON 4 MG OD TAB PO PRN (16:24)
[2019-03-21] MEDS ORDERED: LORazepam 0.5 MG TAB PO PRN (16:24)
[2019-03-21] MEDS ORDERED: MAGNESIUM HYDROXIDE SUSP 30 ML UDC PO PRN (16:24)
[2019-03-21] MEDS ORDERED: TRAMADOL HCL 50 MG TABLET PO PRN (16:24)
[2019-03-21] MEDS ORDERED: METOCLOPRAMIDE HCL INJ 5 MG/ML 2 ML VIAL IV PRN (16:24)
[2019-03-21] MEDS ORDERED: LORazepam 0.5 MG/1 ML VIAL IV PRN (16:24)
[2019-03-21] MEDS ORDERED: BISACODYL 10 MG SUPP PR PRN (16:24)
[2019-03-21] MEDS ORDERED: DO NOT ADMINISTER PNEUMOCOCCAL VACCINE PRN (16:24)
[2019-03-21] MEDS ORDERED: DO NOT ADMINISTER FLU VACCINE PRN (16:24)
[2019-03-21] MEDS ORDERED: FAMOTIDINE 20 MG TAB PO PRN (16:24)
[2019-03-21] MEDS ORDERED: ALUMINUM/MAGNESIUM SUSP 30 ML UDC PO PRN (16:24)
[2019-03-21] MEDS ORDERED: HYDROmorphone INJ 1 MG/ML SYRINGE IV PRN (16:24)
[2019-03-21] MEDS ORDERED: ACETAMINOPHEN 500 MG TAB PO PRN (16:24)
[2019-03-21] MEDS: LACTATED RINGER'S 1,000 ML IV SCH ×3 (17:14→23:56)
[2019-03-21] MEDS: KETOROLAC 30 MG/ML VIAL IV SCH ×2 (17:14→22:19)
[2019-03-21] MEDS: OXYCODONE HCL IR 5 MG TAB (IMMEDIATE RELEASE) PO PRN ×2 (17:20→21:41)
[2019-03-21] MEDS: CEFAZOLIN 2000MG 2,000 MG/15 ML SYR IV SCH (19:21)
[2019-03-21] MEDS: DOCUSATE SODIUM/SENNA 50/8.6MG TAB PO SCH (21:41)
[2019-03-22] MEDS: OXYCODONE HCL IR 5 MG TAB (IMMEDIATE RELEASE) PO PRN ×3 (03:54→16:46)
[2019-03-22] MEDS: CEFAZOLIN 2000MG 2,000 MG/15 ML SYR IV SCH (03:54)
[2019-03-22 05:21] LABS: Basophils # (auto) 0.01 K/uL (0-0.2); Basophils % (auto) 0.1 %; Hematocrit (blood only) 38.9 % (42-52); Hemoglobin 13.1 g/dL (14.0-18.0); Immature Granulocytes # (auto) 0.02 K/uL (0.00-0.02); Immature Granulocytes % (auto) 0.2 %; Lymphocytes # (auto) 1.57 K/uL (1.2-3.4); Lymphocytes % (auto) 12.3 %; Mean Corpuscular Hemoglobin 30.5 pg (25-34); Mean Corpuscular Hgb Conc 33.7 g/dL (32-36); Mean Corpuscular Volume 90.5 fL (80-100); Mean Platelet Volume 10.8 fL (7.4-10.4); Monocytes % (auto) 4.7 %; Neutrophils # (auto) 10.56 K/uL (1.4-6.5); Neutrophils % (auto) 82.7 %; Platelet Count 148 K/uL (130-400); RDW Standard Deviation 42.5 fL (36.4-46.3); White Blood Count 12.76 K/uL (4.8-10.8)
[2019-03-22] MEDS: POLYETHYLENE (MIRALAX) 17 GM PACK PO SCH ×3 (05:26→18:25)
[2019-03-22] MEDS: KETOROLAC 30 MG/ML VIAL IV SCH ×2 (05:26→10:17)
[2019-03-22 05:54] LABS: Calcium 8.8 mg/dl (8.5-10.1); Creatinine Clr Calc Pharmacy 127.4 ml/min; Est GFR (African American) 130.9; Potassium 4.2 mmol/L (3.5-5.1)
--- NOTE | 2019-03-22 07:58 | Anesthesiology Progress Note ---
Date of Service March 22, 2019 Anesthesia Post Procedure Vital Signs Vital Signs: Temp Pulse Pulse Resp BP Pulse Ox 03/22/19 03:44 36.5 C 73 18 121/68 98 03/21/19 23:36 36.5 C 77 18 134/84 98 03/21/19 19:16 36.4 C L 76 16 144/74 H 96 03/21/19 18:12 36.4 C L 67 16 122/70 99 03/21/19 17:16 36.5 C 83 16 123/74 96 03/21/19 16:44 36.5 C 77 16 123/84 95 03/21/19 16:10 36.4 C L 74 16 136/82 94 03/21/19 15:55 80 19 139/83 96 03/21/19 15:45 36.5 C 73 20 124/87 96 03/21/19 15:35 83 17 121/84 96 03/21/19 15:25 96 H 16 128/78 97 03/21/19 15:15 72 17 118/71 97 03/21/19 15:05 75 16 123/70 97 03/21/19 14:55 36.7 C 76 26 H 108/73 97 03/21/19 11:34 36.8 C 80 20 124/90 98 Pain Intensity Lower Back: Pain Intensity: 7 Notes Mental Status: alert / awake / arousable and participated in evaluation Patient Amnestic to Procedure: Yes Nausea / Vomiting: adequately controlled Pain: adequately controlled Airway Patency, RR, SpO2: stable & adequate BP & HR: stable & adequate Hydration State: stable & adequate Anesthetic Complications: no major complications apparent and Pt Satisfied with anesthetic care
--- NOTE | 2019-03-22 10:13 | Orthopedic Progress Note ---
Date of Service March 22, 2019 Assessment & Plan (1) Spinal stenosis, lumbar region with neurogenic claudication: At this time we will continue physical therapy monitor his TRACI output anticipate discharge home the next few days. Present on Admission?: Yes Subjective Back pain is controlled leg symptoms improved. Physical Exam Physical Exam: Patient is in the chair at the bedside. Is good strength testing. Appears comfortable. Results & Data Vital Signs (Past 12 Hours) Vital Signs Temp Pulse Resp BP Pulse Ox 03/22/19 08:02 36.5 C 75 16 130/88 100 03/22/19 03:44 36.5 C 73 18 121/68 98 03/21/19 23:36 36.5 C 77 18 134/84 98
[2019-03-22] MEDS: KETOROLAC 30 MG/ML VIAL IV PRN (19:53)
[2019-03-22] MEDS: DOCUSATE SODIUM/SENNA 50/8.6MG TAB PO SCH (21:14)
[2019-03-23] MEDS: POLYETHYLENE (MIRALAX) 17 GM PACK PO SCH ×3 (00:21→11:58)
[2019-03-23] MEDS: OXYCODONE HCL IR 5 MG TAB (IMMEDIATE RELEASE) PO PRN ×3 (00:21→11:10)
[2019-03-23] MEDS: KETOROLAC 30 MG/ML VIAL IV PRN (06:37)
--- NOTE | 2019-03-23 11:52 | Discharge Summary ---
Date of Service March 23, 2019 Admission HPI Per Admitting Provider This is a 38-year-old male who presents with chronic persistent back and leg pain after failing extensive course of nonoperative care is here for surgery intervention. Principal Diagnosis Lumbar spinal stenosis with neurogenic claudication recurrent disc herniation L4-5 Discharge Data Allergies Allergy/AdvReac Type Severity Reaction Status Date / Time No Known Allergies Allergy Mild Unverified 03/02/19 08:34 Consultations 03/21/19 16:24 Consult Case Management - Discharge Planning Routine Procedures Performed Operation Date: 03/21/19 12:35 Actual Procedures p L4-L5 Transforaminal Lumbar Interbody Fusion, Use of Oseoamp and Infuse, Spinal Cord Monitoring(Not Applicable) - López Jaffe DO Ordered Studies 03/21/19 12:33 [place] lumbar spine 2-3V Routine 03/21/19 12:35 FL fluoroscopy <1hr Routine Hospital Course (1) Spinal stenosis, lumbar region with neurogenic claudication: Patient underwent lumbar decompression fusion tolerated as well as taken to the orthopedic floor postoperative. Postop day 1 is up and ambulating leg pain improved. Progressed to postop day #2. Good strength testing. TRACI drain decreasing appropriately. Subsequently discharged home. Discharge orders and instructions found in the chart for further review. Total Time Total Time Spent Total Time Spent (In Minutes): 20 minutes Discharge Plan Discharge Items Patient Disposition: Home - Self-Care Reason For Visit: Lumbar Intervertebral Disc Disorders w/Radiculopat Discharge Diagnosis: lumbar stenosis Activity: As commented below Non-emergency contact: Primary Care Provider Call non-emergency contact if: you have any medication questions Follow-up/Referrals: Asia Portillo MD [Primary Care Provider] - Diet: Regular Addtl Attending Provider Instructions: ACTIVITY RECOMMENDATIONS: SELF CARE INSTRUCTIONS AFTER THORACIC/LUMBAR FUSIONS 1. You may walk to your tolerance. It is good exercise for your legs and back. Expect some back and intermittent leg aches and pains. 2. You may perform "counter-top" level activities (make a sandwich, andrés with a project, etc.). 3. No bending or lifting of more than 10 pounds or back twisting of any nature (roll like a log when turning in bed). 4. You may ride in a car for 20-30 minutes at a time. No driving until after your first visit with your doctor. 5. Frequent changes of position and restricting sitting to 30 minutes at a time will help limit the amount of back spasms and stiffness you may experience. 6. You may discontinue the use of ambulatory aids (cane, crutches, etc.) once your strength and confidence allow. 7. You may button tufting machine operator the shower and let water strike your incision when you arrive home at least once daily. Do not take a tub bath, sit in a hot tub or go into a swimming pool until after your first recheck in the office. SPECIAL CARE INSTRUCTIONS: VERY IMPORTANT TO READ AND REVIEW A. Your surgical incision has been closed with a cosmetic suture under the skin that will dissolve in about 6 weeks. In 14 days, you can use a pair of clean scissors and cut the suture that is left outside of the skin at the ends of your incision. 1. The small skin tapes can be removed 7 days after surgery if they have not fallen off by that point. 2. You may keep the wound open to air as much as possible to promote healing after post-op day number 5 unless told otherwise by your doctor. 3. If you think the wound looks like it is becoming infected (redness or worsening drainage) and/or you are experiencing fever, chill or worsening back pain and muscle spasms, contact the office so that we may evaluate you as soon as possible. B. Complications are uncommon, but please contact us if you have any signs or symptoms of: 1. wound infection (fever higher than 102.5 degrees F, redness, separation of wound, drainage, or increasing pain from the incision) 2. blood clots in legs (pain, swelling, redness and warmth in legs) 3. urinary tract infection (fever higher than 102.5 degrees F, burning upon urination or increased frequency of urination) 4. nerve problems (inability to walk on your toes or heels, numbness, loss of bowel or bladder control) 5. any other symptoms that concern you C. Please call the office at if you have any concerns or questions about your operation or recovery. D. No smoking! Smoking drastically decreases the chance of a solid fusion. E. Do not take any anti-inflammatory medications (Indocin, Advil, Motrin, Aspirin, Naprosyn, etc.) as these may inhibit the chance of a solid fusion. Tylenol is okay to take for pain. MANAGING PAIN AFTER SPINAL SURGERY 1. Narcotic medication is intended for short-term use and will be provided for surgical pain. Surgical pain usually lasts for a period of 4-6 weeks. Narcotic medication includes Percocet, Vicodin, Darvocet, Tylenol #3 or Lortab. 2. Longer-term pain is more appropriately treated with non-narcotic medication such as Tylenol ES. 3. Muscle spasm is not appropriately treated with narcotics. Muscle relaxers such as Soma, Flexeril or Skelaxin can be used along with Tylenol ES. 4. Remember that we all live with some "aches and pains". This is not unusual or uncommon after an injury or as we get older. a. Back pain is expected and may include muscle spasms for 4 to 6 weeks after surgery. The pain should gradually improve. If the pain worsens for no apparent reason, please contact the office. b. Intermittent leg pain may also be experienced and should not be concerned about unless it worsens for no apparent reason. If so, please contact the office. 5. We will provide appropriate medication within the normal guidelines of their prescribed use. We will also be very cautious and aware of potential abuse and extended duration of patients' medication needs. a. Pain medications are for your comfort and to assist with sleep and rest so that the tissue can heal. They are not provided in order to return to normal activity and should not be used through the day. To do so or worsening pain at night can result from ongoing tissue damage and development of tolerance to the prescribed medicine. 6. Please allow 2-3 days to process refills. Prescriptions will not be mailed but must be picked up at the office. FOLLOW UP VISIT: Keep your scheduled follow-up appointment. Any questions, please call the office at . Pending Studies at Discharge: No Stand-Alone Forms: [employer], Smoking Cessation Medications and DC Order Prescriptions: New tramadol 50 mg tablet 50 mg PO Q6H PRN (Reason: pain, moderate) Qty: 30 RF: 0 oxycodone 5 mg tablet 5 mg PO Q6H PRN (Reason: pain, severe) Qty: 30 RF: 0 Continued Tylenol 1 tab PO DAILY PRN (Reason: Pain) RF: 0 Discharge Orders: Discharge Order (Routine); Ordered 03/23/19 Ordered By: López Jaffe Admission Data Admit Date/Time: 03/21/19 14:44 Attending Provider: López Jaffe Admit Provider: López Jaffe Primary Care Provider: Asia Portillo Other Interventions: Discharge Summary Assessment (RN) Last Done: 03/23/19 11:34
== END 2019-03-23 13:36 | disposition home or self-care (01) | DRG 455 ==
LOC: ASU 11:04 → 3E 14:44